=== PATIENT | female | born 1945 | race Two or more races ===

== ENCOUNTER 2021-11-02 14:12 | Emergency (ER) | payer BC ==
[~2021-11-02] VITALS: Ht 160 cm; Wt 77.0 kg
[2021-11-02 14:15] VITALS: BP 169/90
[2021-11-02] MEDS ORDERED: FLUORESCEIN SODIUM 1MG/STRIP BOTHEYE ONE (15:45)
[2021-11-02] MEDS ORDERED: HYDROCODONE/ACETAMINOPHEN 5/325MG TABLET PO ONE (15:45)
[2021-11-02] MEDS ORDERED: TETRACAINE 0.5% OPHTH DROPS 4ML BOTHEYE ONE (15:45)
[2021-11-02] MEDS ORDERED: IBUPROFEN 600MG TABLET PO ONE (15:45)
== END 2021-11-02 15:15 | disposition home or self-care (01) ==
LOC: ER 14:57
DX: T59.91XA Toxic effect of unspecified gases, fumes and vapors, accidental (unintentional), initial encounter (principal); X58.XXXA Exposure to other specified factors, initial encounter; Y93.89 Activity, other specified; Y92.89 Other specified places as the place of occurrence of the external cause; Y99.8 Other external cause status
CPT/HCPCS: 99283